=== PATIENT | male | born 1965 | race Caucasian/White ===

== ENCOUNTER 2016-07-23 10:45 | Emergency (ER) | payer BC ==
--- NOTE | 2016-07-29 21:38 | ER ---
ADMIT: 07/23/2016 RM/LOC: ER [facility] MR#: [id number] [address] [id number] CHANDANA OLMEDO [address] [place], [place] [id number] Emergency Room Report SEX: M AGE: 51 : 1965 DATE: 07/23/2016 ADDENDUM: See T sheet for complete H and P. This 51-year-old male, otherwise healthy, comes in with multiple vague complaints, primarily that he just feels overly tired and has no energy. This has been going on for couple days. In addition, he states he is having pain in his left elbow. He states he does a lot of duties at work that involve repetitive motion and are quite strenuous. He states that this pain in his elbow has been there for quite some time. It seems worse over the past couple of days also. He denies any trauma. He is concerned he has diabetes even though his only real symptom that would be consistent with that is some fatigue and increased thirst recently. I did check some labs which show his CBC, chemistries, and urinalysis were unremarkable. I checked an influenza which was also negative. The patient did receive Toradol 30 mg IM and one Ultram in the Emergency Department. He will be discharged home to use ibuprofen on a scheduled basis for the next couple of weeks, to use Ultram as needed for pain, and he needs to follow up with Dr. Talbert in the next couple weeks after he has been on therapy to see if he is responding. He is given a note for work stating that he has to have decreased duties at work using his left arm to give his elbow a chance to heal and respond to the ibuprofen. DIAGNOSES: 1. Generalized weakness. 2. Left elbow pain, probably overuse injury. Larry Ruelas MD/ [facility] JOB #: [id number] CC: Larry Ruelas MD, Attending Physician Cristopher Talbert MD, Family Physician
== END 2016-07-23 12:40 | disposition home or self-care (01) ==
LOC: ER 10:45
DX: M25.522 Pain in left elbow (principal); R53.1 Weakness; F17.210 Nicotine dependence, cigarettes, uncomplicated; Z79.899 Other long term (current) drug therapy; Z98.890 Other specified postprocedural states